=== PATIENT | male | born 1945 | race African-American/Black ===

== ENCOUNTER 2018-07-12 20:49 | Emergency (ER) | payer OTHER ==
[~2018-07-12] VITALS: Ht 188 cm; Wt 110.4 kg
[2018-07-12 20:56] VITALS: BP 152/84
--- NOTE | 2018-07-12 21:00 | NUR ---
Patient's symptoms were concerning to me because of the circumstance of [place]. duct cleaner notified and Dr. Gregg informed of patient's situation. Dr. Gregg requests and EKG due to his lethargy. duct cleaner requests we place the patient in 10 as it is available and place the HEPA filter in the room until the patient can be worked up.
[2018-07-12] MEDS ORDERED: insulin regular, human 10 units/0.1 ml syringe SQ ONE (22:30)
[2018-07-12] MEDS ORDERED: insulin glargine (Lantus) pen - multi-dose SQ ONE (22:30)
== END 2018-07-12 23:42 | disposition home or self-care (01) ==
LOC: ER 20:50
DX: E11.65 Type 2 diabetes mellitus with hyperglycemia (principal); J10.1 Influenza due to other identified influenza virus with other respiratory manifestations
CPT/HCPCS: 71046; 82948; 93005; 96372; 99283; J1815; 99284

== ENCOUNTER 2019-01-15 04:04 | Emergency (ER) | payer OTHER ==
[~2019-01-15] VITALS: Ht 188 cm; Wt 98.0 kg
[2019-01-15 04:08] VITALS: BP 193/88
[2019-01-15] MEDS ORDERED: ACET-2615 PO (04:54)
[2019-01-15] MEDS ORDERED: acetaminophen 325mg tablet PO ONE (04:55)
== END 2019-01-15 05:06 | disposition home or self-care (01) ==
LOC: ER 04:05
DX: M54.5 Low back pain (principal); E11.9 Type 2 diabetes mellitus without complications; Z79.899 Other long term (current) drug therapy
CPT/HCPCS: 99282